=== PATIENT | female | born 1975 | race African-American/Black ===

== ENCOUNTER → 2018-09-29 08:20 | Outpatient (CLI) | payer BC | END | disposition home or self-care (01) | LOC: D.HCCARDIO 08:20 | PROVIDERS: ATTEND Internal Medicine Interventional Cardiology | DX: R09.89 Other specified symptoms and signs involving the circulatory and respiratory systems (principal) ==

== ENCOUNTER → 2018-09-29 08:31 | Outpatient (CLI) | payer BC | END | disposition home or self-care (01) | LOC: D.US 08:30 | PROVIDERS: ATTEND Internal Medicine Interventional Cardiology | DX: R09.89 Other specified symptoms and signs involving the circulatory and respiratory systems (principal) ==

== ENCOUNTER → 2018-12-01 09:08 | Outpatient (CLI) | payer BC | END | disposition home or self-care (01) | LOC: D.CT 09:08 | PROVIDERS: ATTEND Family Medicine | DX: I73.9 Peripheral vascular disease, unspecified (principal) ==